=== PATIENT | female | born 1955 | race Caucasian/White ===

== ENCOUNTER → 2018-01-23 06:54 | Outpatient (CLI) | payer BC, SELFPAY ==
[2018-01-23 07:41] LABS: CREATININE FINGERSTICK < 0.6 mg/dL (0.55-1.02); EGFR FINGERSTICK > 60.0000 mL/min (>60)
--- NOTE | 2018-01-23 15:04 | PFTCOMP ---
COMPLETE PULMONARY FUNCTION TEST INTERPRETATION Brief HPI: Patient is a 62 year old female, currently under the care of Dr. Ochoa, who presents to [facility] for complete pulmonary function tests secondary to diagnosis of cough. Respiratory therapist reports good effort and reproducible results. Interpretation: Forced expiration spirometry shows no large airways obstructive ventilatory defect with an FEV1 of 107% predicted. There is no significant bronchodilator response by ATS criteria. Spirograms are of good quality and plateau normally. The respiratory flow volume loop shows a normal pattern. Lung volumes by body plethysmography show a normal total lung capacity at 5.52 L, 109% predicted. All other lung volumes are within normal limits. Diffusion capacity by carbon monoxide is normal at 93% predicted. The airway resistance is elevated. No previous pulmonary function tests were available for review. Impression: These pulmonary function tests are grossly within normal limits. Consider bronchoprovocation study if asthma is suspected.
== END ==
PROVIDERS: Family Provider Family Medicine; PCP Family Medicine; Visit Provider Family Medicine
DX: Z87.09 Personal history of other diseases of the respiratory system (principal); Z80.0 Family history of malignant neoplasm of digestive organs
CPT/HCPCS: 74177; 94060; 94726; 94729; Q9967; A4216

== ENCOUNTER 2018-03-17 07:39 | Day surgery (SDC) | payer BC, SELFPAY ==
[2018-03-17 07:53] VITALS: BP 122/61; PULSE 59; RESP 16; TEMP 36.7; O2SAT 100; BMI 25.1
--- NOTE | 2018-03-17 08:47 | HP.PCM_ITS ---
History of Present Illness Date of Admission: 03/17/18 The patient is a 62 year old F presents for a screening colonoscopy. Patient denies any history of abdominal pain, nausea or vomiting. Patient states she has daily bowel movements denies any blood. Denies any previous colonoscopies or any family history of colon cancer. Past Medical/Surgical History - Planned Operation Planned Operative Procedure/s: colonoscopy Date of Operative Procedure: 03/17/18 Permit Signed: No S.O.S: No Is This Patient Having a Total Joint: No - Previous Hospitalizations/Surgeries HX Hospitalizations: Yes HX of Surgeries: skin Cancers. hysteroscopy. colonoscopy 2017 Any Problems With Anesthesia: Yes - extremely low BP You/Your Family Experience Fever (Hyperthermia) With Anes: No Cholinesterase deficiency: No - Cardiovascular Hx Chest Pain within Last 2 months: No Hx of Irregular Heartbeat and/or Afib: Yes Hx Heart Attack: No Hx Congestive Heart Failure: No Hx Rheumatic Fever: No Hx Hypertension: No Hx Internal Defibrillator: No Hx Pacemaker: No Hx Cardiac Catheterization: No Hx Cardiac Surgery/Stents/Etc.: No Hx Stress Test: Yes - 09/2017 Dr Craig HX Edema: No Hx Pain in Legs when Walking/Leg Cramps: No - Respiratory Chronic Cough: Yes - x1 year HX of Shortness of Breath: No Hoarseness: No Hx Chronic Obstructive Pulmonary Disease (COPD): No Hx Asthma: No Hx Emphysema: No Hx Sleep Apnea: No Hx Oxygen Use at Home: No Hx Respiratory Tract Infection/Cold (presently): No Do You Snore Loudly (louder than talking or can be heard): No Do You Often Feel Tired/ Fatigued/ Sleepy Dring Daytime?: No Has Anyone Observed You Stop Breathing During Sleep?: No Result (for STOP score): Negative Hx Smoking: Yes Smoking Status: Never smoker - Gastrointestinal Hx Gastroesophageal Reflux: No Hx Gastrointestinal Disorders: No Hx Gastrointestinal Bleed: No Hx Ulcer: No Hx Hiatal Hernia: No Difficulty Chewing/Swallowing: No Recent Onset of Swallowing Problems: No Special diet followed at home: No Hx Unplanned Weight Loss of 20#: No HX Unplanned Weight Gain of 20#: No - Neurological Hx Seizures: No HX Syncope/Blackout Spells/Unconsciousness: No Hx CVA/Stroke: No Hx Transient Ischemic Attacks (TIA): No Hx Multiple Sclerosis: No Hx Parkinson's Disease: No Hx Head/Neck Injury: No Hx Headaches: No Hx Back Injury/Pain: No Recent Onset of Speech Difficulty: No Restless Legs: No Does patient have nerve stimulator: No - Blood Disorder Hx Leukemia: No Bleeding Tendencies: Yes Hx Deep Vein Thrombosis: No Hx High Cholesterol: No Blood Transmitted Disease: No Hx Hepatitis: No Hx Cirrhosis: No Hx Anemia: No Hx Blood Disorders: No - Reproduction Are You Post Menopause: Yes - Genitourinary Hx Renal Disease: No - Musculoskeletal Hx Arthritis: Yes Hx Rheumatoid Arthritis: No Hx Gout: No Recent Onset of an Orthopedic Problem: No - Endocrine Hx Diabetes: No Thyroid Disease: No Hx Steroid Therapy: No - Psycho/Social Hx Substance Use: No Hx Alcohol Use: Yes - wine with dinner daily Hx Anxiety: No Hx Depression: No Mental Illness: No - Miscellaneous Hx Cancer: Yes - skin CA Recent Exposure to Contagious Disease: No Active MRSA: No Hx of C-Diff: No Any Loose Teeth: No Additional information pertinent to anesthesia:: none Allergies Penicillins Allergy (Intermediate, Verified 01/10/18 13:51) Hives - Discharge Is Pt Admitted From a Assisted, or a Penitentiary: No Who Depends On You At Home: lives with Who Could Help: After D/C, Where Do you Plan to Go: Return Home - From the PAT History Number of Risk Factors: 3 - Physical Exam General: Alert, Oriented x3, Cooperative, No apparent distress HEENT: Atraumatic Lungs: Normal air movement Cardiovascular: Regular rate Abdomen: Soft, Non Tender, Non-Distended Extremities: No clubbing, No cyanosis, No edema Neurological: Cranial nerves II-XII grossly intact Psych/Mental Status: Normal Affect Vital Signs Temp Pulse Resp BP Pulse Ox 98.1 F 59 L 16 122/61 H 100 03/17/18 07:53 03/17/18 07:53 03/17/18 07:53 03/17/18 07:53 03/17/18 07:53 Oxygen Delivery Method Room Air Weight: 151 lb 0.266 oz Body Mass Index (BMI) 25.1 Assessment/Plan All Active Problems (Last Updated 01/10/18 @ 13:59 by Judy Chapa) Skin cancer (Acute) 62-year-old female for screening colonoscopy Surgery Risks - Colonoscopy I discussed with the patient the risks of the procedure: Yes Risks Include but are not Limited To: Risks include but are not limited to: Bleeding, perforation requiring further surgery, inability to complete colonoscopy requiring barium enema. Patient no further questions
[2018-03-17 09:20] VITALS: BP 122/61; BP 90/43; PULSE 65; RESP 16; TEMP 36.3; O2SAT 100
--- NOTE | 2018-03-17 09:20 | OP.ENDO_ITS ---
Patient Name: Jane Doe Procedure Date: 03/17/2018 8:47 AM Date of : 1955 Age: 62 Procedure: Colonoscopy Indications: Screening for colorectal malignant neoplasm Providers: Rosita Albert MD Referring MD: Rosita Albert MD Medicines: Monitored Anesthesia Care Patient Profile: Last Colonoscopy: none. The patient's first colonoscopy is today. Complications: No immediate complications. Procedure: Pre-Anesthesia Assessment: - Prior to the procedure, a History and Physical was performed, and patient medications and allergies were reviewed. The patient's tolerance of previous anesthesia was also reviewed. The risks and benefits of the procedure and the sedation options and risks were discussed with the patient. All questions were answered, and informed consent was obtained. Prior Anticoagulants: The patient has taken no previous anticoagulant or antiplatelet agents. ASA Grade Assessment: II - A patient with mild systemic disease. After reviewing the risks and benefits, the patient was deemed in satisfactory condition to undergo the procedure. After I obtained informed consent, the scope was passed under direct vision. Throughout the procedure, the patient's blood pressure, pulse, and oxygen saturations were monitored continuously. The colonoscope was introduced through the anus and advanced to the cecum, identified by the appendiceal orifice, IC valve and transillumination. The colonoscopy was performed without difficulty. The patient tolerated the procedure well. The quality of the bowel preparation was good. Scope In: 8:57:12 AM Scope Withdrawal Time 0 hours 10 minutes 0 seconds Scope Out: 9:16:28 AM Total Procedure Duration Time 0 hours 19 minutes 16 seconds Findings: The perianal and digital rectal examinations were normal. The entire examined colon appeared normal on direct and retroflexion views. Impression: - The entire examined colon is normal on direct and retroflexion views. - No specimens collected. Recommendation: - Discharge patient to home. - Continue present medications. - Repeat colonoscopy in 10 years for screening purposes. Procedure Code(s): --- Professional --- G0121, Colorectal cancer screening; colonoscopy on individual not meeting criteria for high risk Diagnosis Code(s): --- Professional --- Z12.11, Encounter for screening for malignant neoplasm of colon CPT copyright 2017 [employer]. All rights reserved. The codes documented in this report are preliminary and upon care tech review may be revised to meet current compliance requirements. MD Rosita Gibbs MD 03/17/2018 9:20:26 AM This report has been signed electronically. Number of Addenda: 0 Note Initiated On: 03/17/2018 8:47 AM
[2018-03-17 09:25] VITALS: BP 122/61; BP 97/55; PULSE 60; RESP 16; O2SAT 100
[2018-03-17 09:30] VITALS: BP 122/61; BP 96/54; PULSE 58; RESP 16; O2SAT 100
[2018-03-17 09:35] VITALS: BP 105/55; BP 122/61; PULSE 60; RESP 16; TEMP 36.6; O2SAT 100
[2018-03-17 09:59] VITALS: BP 122/61
== END 2018-03-17 10:00 | disposition home or self-care (01) ==
LOC: EN 07:39 → AC 07:41
PROVIDERS: Family Provider Family Medicine; PCP Family Medicine; Referring Provider Surgery; Visit Provider Surgery
PROC: 0DJD8ZZ Inspection of Lower Intestinal Tract, Via Natural or Artificial Opening Endoscopic (ICD-10-PCS; CPT 45378; principal; 2018-03-17 08:40)
DX: Z12.11 Encounter for screening for malignant neoplasm of colon (principal); M19.90 Unspecified osteoarthritis, unspecified site; Z78.0 Asymptomatic menopausal state; Z85.828 Personal history of other malignant neoplasm of skin; Z79.82 Long term (current) use of aspirin; Z79.899 Other long term (current) drug therapy; Z87.891 Personal history of nicotine dependence
CPT/HCPCS: 45378; J7120

== ENCOUNTER → 2020-11-03 14:12 | Outpatient (CLI) | payer MEDICARE, SELFPAY ==
--- NOTE | 2020-11-03 14:14 | BI_ITS ---
MAMMOGRAPHY - BILATERAL SCREENING REASON FOR EXAM: Female, 65 years old. Routine annual screening examination. PERTINENT HISTORY: Non-contributory. TECHNIQUE: Digital bilateral breast max (3D mammographic acquisition) in the CC and MLO projections. 2-D mediolateral oblique (MLO) and craniocaudad (CC) views of both breasts were obtained. CAD: Full Field Digital Mammography with Computer Added Detection was performed. COMPARISON: Comparison is made with prior outside examination dated 12/05/2017. FINDINGS: Breast Composition: The breasts are heterogeneously dense, which may obscure small masses. There are now is evidence of an irregular 1 cm x 0.9 cm nodule in the slightly inferior anterior medial aspect of the right breast. Correlation with ultrasound is recommended for further evaluation. No other significant abnormalities are identified. BI/SCRN MAMM (CAD)W/MAX BILAT IMPRESSION: New 1 cm by 0.9 cm nodule in the slightly inferior anterior medial aspect of the right breast correlation with ultrasound is recommended. ASSESSMENT CATEGORY: BIRADS Category 0: Incomplete. Need additional imaging evaluation. A letter regarding these results will be sent to the patient by the facility within 30 days. Approximately 10% of breast cancers are not detected by mammography. A normal mammogram should not delay biopsy of a clinically suspicious abnormality. [id number] Electronically Signed: Mode Ford MD at 15:03 EDT , Service support ,
--- NOTE | 2020-11-03 14:55 | BD_ITS ---
STUDY: DUAL ENERGY X-RAY ABSORPTIOMETRY / DXA REASON FOR EXAM: Female, 65 years old. Z780. The patient is postmenopausal. TECHNIQUE: Bone Mineral Density (BMD) measurements of lumbar spine and bilateral hips were obtained. COMPARISON: None. FINDINGS: Lumbar Spine (L1-L4): g/cm2 (0.963) / T-score (-1.8) / Z-score (-0.2) Findings are suggestive of osteopenia with a moderate fracture risk. Left Femur Total: g/cm2 (0.771) / T-score (-1.9) / Z-score (-0.7) Left Femoral Neck: g/cm2 (0.699) / T-score (-2.4) / Z-score (-1.0) Right Femur Total: g/cm2 (0.722) / T-score (-2.3) / Z-score (-1.1) Right Femoral Neck: g/cm2 (0.649) / T-score (-2.8) / Z-score (-1.3) BD/Dexa Bone Density Study IMPRESSION: The patient is considered osteoporotic as outlined below according to World Lon Organization (WHO) criteria with a high fracture risk. Reference Information: The T-score is the number of standard deviations above or below the standard which is normal for young adults at their peak bone mineral density. The World Health Organization (WHO) interprets the T-scores as follows: Above -1 Normal bone density Between -1 and -2.5 Osteopenia Equal to / or below -2.5 Osteoporosis As a practical clinical guideline, osteopenia may be graded as follows: Mild -1 through -1.5 Moderate -1.6 through -2.0 Severe -2.1 through -2.4 The Z-score is the number of standard deviations above or below age-matched controls. A Z-score of less than -1.5 would be considered abnormal. References: 1. NIH Osteoporosis and Related Bone Diseases www osteo.org 2. International Society for Clinical Densitometry www iscd.org 3. National Osteoporosis Foundation www nof.org Electronically Signed: Mode Ford MD at 8:42 EDT , Service support ,
== END ==
PROVIDERS: PCP Family Medicine; Referring Provider Internal Medicine; Visit Provider Internal Medicine
DX: Z12.31 Encounter for screening mammogram for malignant neoplasm of breast (principal); Z78.0 Asymptomatic menopausal state
CPT/HCPCS: 77063; 77067; 77080

== ENCOUNTER → 2020-11-04 14:17 | Outpatient (CLI) | payer MEDICARE, SELFPAY ==
--- NOTE | 2020-11-04 14:22 | US_ITS ---
STUDY: ULTRASOUND BREAST - RIGHT REASON FOR EXAM: Female, 65 years old. Abnormal screening mammogram. TECHNIQUE: Axial and longitudinal images of the RIGHT breast were performed with a high resolution ultrasound transducer. # OF IMAGES: 16 COMPARISON: Comparison is made with prior mammogram dated 11/03/2020. FINDINGS: RIGHT Breast: The mammographic abnormality corresponds to a 1 cm x 0.9 cm x 1 cm irregular complex nodule with increased vascularity at the 4 o''clock position of the breast at 2 cm from the nipple. Biopsy is recommended. _ US/Breast Limited Unilateral IMPRESSION: 1 cm x 0.9 cm x 1 cm irregular complex nodule with increased vascularity at the 4 o''clock position of the breast at 2 cm from nipple. Biopsy is recommended. ASSESSMENT CATEGORY: BIRADS Category 4: Suspicious - Biopsy Should Be Considered. A letter regarding these results will be sent to the patient by the facility within 30 days. Electronically Signed: Mode Ford MD at 15:02 EDT , Service support ,
== END ==
PROVIDERS: PCP Family Medicine; Referring Provider Internal Medicine; Visit Provider Internal Medicine
DX: R92.8 Other abnormal and inconclusive findings on diagnostic imaging of breast (principal)
CPT/HCPCS: 76642

== ENCOUNTER → 2020-11-09 16:05 | Outpatient (CLI) | payer MEDICARE, SELFPAY ==
--- NOTE | 2020-11-09 | IMM_PTH ---
PATIENT: MISBAH JOHNSON LOC: [facility] U#:[id number] AGE/SX: 69/F ROOM: RE11/09/[address]: Dr. Darian Wyman MD : 1955 BED: DIS: SPEC #: [id number] RECD: 11/11/20 12:49 STATUS: DEBRA REAustin #: [id number] SHYLA: 11/09/20 00:[address]: Darian Wyman DEPT: IMMUNOHISTOCHEMISTRY RECD BY: Isabella Ochoa Tissues: Right breast, NOS Procedures: CALPONIN-1 (add) CK5-6 (add) CK8 (add) SHIRLEY-2 (add) E-CAD (add) HER2 LYNETTE (add) KI-67 (add) P53 (add) SC (add) P40 (add) ER (initial) PHYSICIAN & INSTITUTION [place] [id number] SPECIMEN INFORMATION: Tissue Source: Right breast tissue Clinical Info: Abnormal right breast ultrasound Specimen Number: [id number] CPT code: 51235, 91968 x7, 19273 x3 METHODOLOGY: Deparaffinized sections of prefer/formalin-fixed tissue or PAP/DQ stained slides are incubated with monoclonal/polyclonal antibodies/oligonucleotide probes. Localization is made via biotin free immunoperoxidase method. Appropriate controls are performed and reacted as expected. Results on target cell population are indicated in the following table: RESULTS: ANTIBODY / CLONE RESULT P53 (DO-7) negative Ki-67 (30-9) positive, low to moderate CK8 (49cuekG76) positive CK5-6 (D5 & 1684) negative Calponin-1 (BI632H) negative P40 (BC28) negative E-Cad (ECH-6) positive SHIRLEY-2 (SP21) negative MORPHOMETRIC ANALYSIS ER (clone 6F11) >95%, strong SC (clone 16/1E2) >95%, moderate to strong Her-2Neu (clone CB11) 0 The prognostic test for HER2 is performed on formalin-fixed paraffin embedded tissue. A 3+ (positive) staining pattern is defined as intense, homogeneous, complete, circumferential membranous staining in >10% of contiguous tumor cells. A similar weak (2+) staining pattern is interpreted as equivocal. YULISA follow-up testing is recommended for all equivocal cases. Positivity/negativity for ER/SC is reported if > or < 1% of the tumor cells are immuno- reactive, respectively. The ASCO/CAP criteria is used for scoring. Reference: Journal of Clinical Oncology, 2013; 31:9913-6557 & 2010; 16:7368-6199. Duration of fixation: 6.5 Hrs; Sample Adequate: Yes. These assays have not been validated on decalcified tissues. Results should be interpreted with caution given the likelihood of false negativity on decalcified specimens. These tests were developed and their performance characteristics determined by [facility]. They may not have been cleared or approved by the U.S. Food and Drug Administration. The FDA has determined that such clearance or approval is not necessary. The above immunohistochemical/dualISH markers are ordered and reviewed by the Pathologist. INTERPRETATION: Right breast, biopsy: Invasive ductal carcinoma, nuclear grade 2. Positive for estrogen receptors (favorable prognostic indicator). Positive for progesterone receptors (favorable prognostic indicator). Negative for overexpression of NKV1jie. AM:neema 11/14/2020
[2020-11-09 13:26] VITALS: BMI 26.6
--- NOTE | 2020-11-09 13:45 | BRBX_PTH ---
PATIENT: MISBAH JOHNSON LOC: [facility] U#:[id number] AGE/SX: 69/F ROOM: RE11/09/[address]: Dr. Darian Wyman MD : 1955 BED: DIS: SPEC #: [id number] RECD: 11/09/20 16:02 STATUS: DEBRA RAJESH #: [id number] SHYLA: 11/09/20 13:[address]: Darian Wyman DEPT: SURGICAL PATHOLOGY RECD BY: [place] Tissues: Right breast, NOS Procedures: Surgery Specimen Level IV HEADER OPERATION: Right breast biopsy PRE-OP DIAGNOSIS: Abnormal right breast ultrasound TISSUE SUBMITTED: Right breast tissue MICROSCOPIC DIAGNOSIS Right breast, ultrasound-guided core biopsy: Invasive ductal carcinoma with the following characteristics: Maximal length ? 9 millimeters Nuclear grade ? 1-2/3 AM:neema 11/11/2020 COMMENT ER/MI/Gom6pdb studies are being performed on sections of tumor and the results from this study will be reported separately ([id number]). Case has been reviewed in consultation with Dr. Soto who concurs with the above diagnosis. IDC:SJ MICROSCOPIC DESCRIPTION Slides are reviewed. GROSS DESCRIPTION Received in fixative is one container labeled with the patient name and designated right breast. The specimen consists of multiple elongated fragments of flynn-yellow fibroadipose tissue that in aggregate measure 1.7 x 0.3 x 0.1 cm. The entire specimen is submitted in one cassette. / SARBJIT:neema 11/10/20 TC:0 CPT: 98362
== END ==
PROVIDERS: Referring Provider Surgery; Visit Provider Surgery
DX: R92.8 Other abnormal and inconclusive findings on diagnostic imaging of breast (principal)
CPT/HCPCS: 88305; 88341; 88342

== ENCOUNTER → 2020-11-18 07:21 | Outpatient (CLI) | payer MEDICARE, SELFPAY ==
[2020-11-14 05:53] VITALS: BMI 26.6
--- NOTE | 2020-11-18 07:22 | MRI_ITS ---
STUDY: BILATERAL BREAST MR WITHOUT AND WITH CONTRAST REASON FOR EXAM: Female, 65 years old. Newly diagnosed right breast cancer. TECHNIQUE: Multi-sequence multi-echo imaging of both breasts was performed with a dedicated breast coil. T1-weighted and T2-weighted images were performed before the administration of contrast. T1-weighted images were also performed after the administration of 13ml of Dotarem contrast IV without complications. COMPARISON: Bilateral mammograms dated 12/05/2017, 11/03/2020 and left breast ultrasound dated 12/05/2017 and right breast ultrasound dated 11/04/2020. FINDINGS: RIGHT BREAST: The breast tissue is scattered fibroglandular densities with minimal background enhancement. Irregular enhancing mass at the 4 o''clock position of the right breast approximately 2 cm from the nipple corresponding to the ultrasonographic abnormality and measuring 1.04 cm X 1.09 cm X 1.22 cm. Tissue clip artifact within the mass. LEFT BREAST: The breast tissue is scattered fibroglandular densities with minimal background enhancement. There are no abnormal enhancing masses or areas of non-mass enhancement in the left breast. There are no enlarged or abnormal lymph nodes. There is no abnormality in the visualized regions of the chest or liver. MRI/Breast Bilateral W/O and W IMPRESSION: Mass at the 4 o''clock position of the right breast corresponding to the ultrasonographic abnormality and measuring 1.04 cm x 1.9 cm x 1.22 cm. Left breast is unremarkable. No abnormal lymph nodes in either axilla. CATEGORY: BIRADS Category 6: Known Biopsy-Proven Malignancy - Appropriate Action Should Be Taken. A letter regarding these results will be sent to the patient by the facility within 30 days. Electronically Signed: Yung Delong MD at 10:17 EDT , Service support ,
[2020-11-18 08:25] LABS: Absolute Lymphocyte Count 2.84 X10^3/uL (0.83-4.51); Absolute Neutrophil Count 1.7 X10^3/uL (2.0-7.7); Basophil# 0.03 X10^3/uL; Basophil% 0.6 % (0-1); Eosinophil# 0.11 X10^3/uL; Eosinophils% 2.2 % (0-5); Hematocrit 43.4 % (37-47); Hemoglobin 14.5 g/dL (12.0-15.0); Lymphocyte # 2.84 X10^3/ul (0.83-4.51); Lymphocyte % 55.6 % (19-41); Mean Corp Hgb Conc 33.4 g/dL (32-36); Mean Corpuscular Hgb 31.7 pg (27.0-32.0); Mean Corpuscular Volume 94.8 fL (81-99); Mean Platelet Vol. 10.9 fl (6.2-12.0); Monocyte# 0.47 X10^3/uL; Monocyte% 9.2 % (0-10); NRBC Flagged by Analyzer 0 % (0-5); Neutrophil # 1.66 X10^3/uL (2.7-7.7); Neutrophil % 32.4 % (47-70); Platelet Count 315 K/mm3 (150-450); RBC Distribution Width CV 13.6 % (11.6-14.6); RBC Distribution Width SD 47.5 fl (35.1-43.9); Red Blood Count 4.58 M/mm3 (4.2-5.4); White Blood Count 5.1 K/mm3 (4.4-11.0)
[2020-11-18 08:35] LABS: Erythrocyte Sedimentation Rate 4 mm/hr (0-30)
[2020-11-18 09:08] LABS: ALB/GLOB Ratio 1.1 RATIO (0.9-2.4); AST(SGOT) 31 U/L (15-37); Alanine Aminotransfer ALT/SGPT 27 U/L (13-56); Alkaline Phosphatase 83 U/L (45-117); Anion Gap 3 (5-15); BUN 9 mg/dL (7-18); Bilirubin, Direct 0.18 mg/dL (0.00-0.30); CRP < 2.90 mg/L (0.0-3.0); Calcium,Total 9.1 mg/dL (8.5-10.1); Chloride 105 mmol/L (98-107); Cholesterol 246 mg/dL (200); EST Glomerular Filtration Rate 67 mL/min (>60); Est Glom Filt Rate - Afr Amer 81 mL/min (>60); Globulin 3.6 g/dL (2.2-4.2); Glucose 90 mg/dL (74-106); High Density Lipoprotein 109 mg/dL; Phosphorus 3.8 mg/dL (2.5-4.9); Potassium 4.2 mmol/L (3.5-5.1); Protein, Total 7.6 g/dL (6.4-8.2); Rheumatoid Factor < 10.0 IU/mL (<15); Sodium Level 137 mmol/L (136-145); Triglycerides 51 mg/dL; Very Low Density Lipoprotein 10 mg/dL (5-40)
[2020-11-18 09:23] LABS: PTHIN 51.7 pg/mL (18.4-80.1)
[2020-11-18 10:06] LABS: Hepatitis C Antibody Non-Reactive (Nonreactive); Vitamin B12 409 pg/mL (211-911); Vitamin D,25 Hydroxy 33.2 ng/mL
[2020-11-22 20:10] LABS: ANTINUCLEAR ANTIBODIES DIRECT Negative (Negative)
[2020-11-23 14:09] LABS: PROEL- A/G Ratio 1.2 (0.7-1.7); PROEL- Albumin 3.8 g/dL (2.9-4.4); PROEL- Alpha-1 Globulin 0.2 g/dL (0.0-0.4); PROEL- Alpha-2 Globulin 0.7 g/dL (0.4-1.0); PROEL- Gamma Globulin 1.2 g/dL (0.4-1.8); PROEL- Globulin, Total 3.2 g/dL (2.2-3.9); PROELU- Albumin, Urine 29.6 % (.); PROELU- Alpha-1-Globulin,Ur 4.3 % (.); PROELU- Alpha-2-Globulin,Ur 22.6 % (.); PROELU- Beta Globulin, Ur 20.8 % (.); PROELU- Gamma Globulin, Ur 22.6 % (.); Total Protein, Ur 10.3 mg/dL (Not Estab.)
== END ==
PROVIDERS: Internal Medicine; Referring Provider Surgery; Visit Provider Surgery
DX: C50.911 Malignant neoplasm of unspecified site of right female breast (principal); M81.0 Age-related osteoporosis without current pathological fracture; R53.83 Other fatigue
CPT/HCPCS: 36415; 77049; 80053; 80061; 82248; 82306; 82607; 82652; 82746; 83970; 84100; 84165; 84166; 84443; 85025; 85652; 86038; 86140; 86431; 86803; A9575; A4216; C8908

== ENCOUNTER → 2020-11-23 08:24 | Outpatient (CLI) | payer MEDICARE, SELFPAY ==
[2020-11-14 05:53] VITALS: BMI 26.6
[2020-11-23 08:51] LABS: (24 HR) Urine Calcium 250.8 mg/24 HR (42.0-353.0); 24HR UR TOTAL VOLUME 3800 ml; Calcium Urine pH Range 1; Urine Calcium (Random) 6.6 (Not Estab.)
== END ==
PROVIDERS: PCP Internal Medicine; Visit Provider Internal Medicine
DX: M81.0 Age-related osteoporosis without current pathological fracture (principal)
CPT/HCPCS: 81050; 82340

== ENCOUNTER 2020-12-02 08:37 | Day surgery (SDC) | payer MEDICARE, SELFPAY ==
[2020-11-14 05:53] VITALS: BMI 26.6
--- NOTE | 2020-11-28 13:57 | RAD_ITS ---
STUDY: X-RAY CHEST REASON FOR EXAM: Female, 65 years old. Preop TECHNIQUE: PA and lateral views of the chest. COMPARISON: None. FINDINGS: Hyperinflation. The lungs are clear. There is no demonstrated pleural abnormality. Normal size heart. Normal mediastinum and chris. Normal visualized pulmonary arteries. Normal visualized aortic arch and descending thoracic aorta. There are mild degenerative changes of the visualized thoracic spine. Normal visualized ribs, clavicles, and shoulders. There is no demonstrated abnormality of the visualized soft tissue structures of the upper abdomen. RAD/Chest PA and Lateral IMPRESSION: Hyperinflation. The lungs are clear. Electronically Signed: Mode Ford MD at 14:41 EDT , Service support ,
--- NOTE | 2020-11-28 13:57 | EKG12_ITS ---
Test Reason : PREOP Blood Pressure : / mmHG Vent. Rate : 048 BPM Atrial Rate : 048 BPM P-R Int : 120 ms QRS Dur : 094 ms QT Int : 468 ms P-R-T Axes : 054 055 058 degrees QTc Int : 418 ms Sinus bradycardia Otherwise normal ECG Confirmed by HECTOR RAMOS, ADELINA ([id number]), dictionary editor EVERARDO BENITEZ ([id number]) on 11/29/2020 7:37:40 AM Referred By: Darian Wyman Confirmed By:ADELINA YOUNG MD
[2020-12-02] VITALS (12 sets, daily range): BP systolic 87–114; BP diastolic 46–80; PULSE 55–71; RESP 16; TEMP 36.4–36.6; O2SAT 93–100; BMI 25.2
--- NOTE | 2020-12-02 | IMM_PTH ---
PATIENT: MISBAH JOHNSON LOC: [facility] U#:[id number] AGE/SX: 65/F ROOM: RE12/02/[address]: Dr. Darian Wyman MD : 1955 BED: DIS: 12/02/2020 SPEC #: [id number] RECD: 12/07/20 13:16 STATUS: DEBRA REAustin #: [id number] SHYLA: 12/02/20 00:[address]: Darian Wyman DEPT: IMMUNOHISTOCHEMISTRY RECD BY: Isabella Ochoa ENTERED: 12/07/20 13:17 SP TYPE: IMMUNO OTHR DR: Dr. Aleaj Almendarez DO Tissues: C - Axillary lymph node, NOS Procedures: CK7 (add) Pankeratin (initial) Pankeratin (add) PHYSICIAN & INSTITUTION [place] [address] SPECIMEN INFORMATION: Tissue Source: C ? Right axillary sentinel lymph nodes Clinical Info: Breast cancer Specimen Number: [id number] C1-C5 CPT code: 51231, 66239 x9 METHODOLOGY: Deparaffinized sections of prefer/formalin-fixed tissue or PAP/DQ stained slides are incubated with monoclonal/polyclonal antibodies/oligonucleotide probes. Localization is made via biotin free immunoperoxidase method. Appropriate controls are performed and reacted as expected. Results on target cell population are indicated in the following table: RESULTS: ANTIBODY / CLONE RESULT Block C1 AE1-3 (AE1/AE3/PCK26) negative CK7 (OV-TL12/30) negative Block C2 AE1-3 (AE1/AE3/PCK26) negative CK7 (OV-TL12/30) negative Block C3 AE1-3 (AE1/AE3/PCK26) negative CK7 (OV-TL12/30) negative Block C4 AE1-3 (AE1/AE3/PCK26) negative CK7 (OV-TL12/30) negative Block C5 AE1-3 (AE1/AE3/PCK26) negative CK7 (OV-TL12/30) negative These tests were developed and their performance characteristics determined by [facility]. They may not have been cleared or approved by the U.S. Food and Drug Administration. The FDA has determined that such clearance or approval is not necessary. The above immunohistochemical/dualISH markers are ordered and reviewed by the Pathologist. INTERPRETATION: C. Right axillary sentinel lymph nodes, biopsy: Five out of five lymph nodes, negative for metastatic carcinoma. SJ:neema 12/08/2020
--- NOTE | 2020-12-02 | AXNB_PTH ---
PATIENT: MISBAH JOHNSON [place] [facility] [place][id number] AGE/SX: 65/F ROOM: RE12/02/[address]: Dr. Darian Wyman MD : 1955 BED: DIS: 12/02/2020 SPEC #: [id number] RECD: 12/02/20 12:27 STATUS: DEBRA RE[place] #: [id number] SHYLA: 12/02/20 00:[address]: Darian Wyman DEPT: SURGICAL PATHOLOGY RECD BY: Isabella Ochoa ENTERED: 12/02/20 13:53 SP TYPE: AX NODE BX OTHR DR: Dr. Aleja Almendarez, DO Tissues: A - Axillary lymph node, NOS B - Right breast, NOS C - Axillary lymph node, NOS Procedures: Frozen Section (charge) Frozen Section Add'l ([facility]) Surgery Specimen Level IV Surgery Specimen Level V HEADER OPERATION: Right breast stereotactic wire localized lumpectomy PRE-OP DIAGNOSIS: Breast cancer TISSUE SUBMITTED: A ? Right axillary sentinel lymph node, FS at 1223, B ? Right breast mass, C??Right axillary sentinel lymph node, FS at 1303 FROZEN SECTION DIAGNOSIS C. Right axillary sentinel lymph nodes, biopsy: Five out of five lymph nodes, negative for metastatic carcinoma. SJ:neema 12/02/2020 MICROSCOPIC DIAGNOSIS A. Right axillary sentinel lymph node, biopsy: Fragments of fatty benign breast tissue. Negative for carcinoma. B. Right breast mass, lumpectomy with wire localization: Invasive ductal carcinoma. See cancer summary in the comment section. C. Right axillary sentinel lymph nodes, biopsy: Five out of five lymph nodes, negative for metastatic carcinoma. See comment. COMMENT B. BREAST CANCER SUMMARY Procedure - excision with wire localization Specimen laterality ? right Invasive tumor: Tumor site ? lower inner quadrant of breast as per clinical information. Tumor size ? 1.1 x 1 x 1 cm. Histologic type ? invasive ductal carcinoma (not otherwise specified) Histologic grade (Oscar grade): Glandular/tubular differentiation score - 3 Nuclear pleomorphism score - 2 Mitotic count score - 1 Overall grade ? grade 2 (score of 6) Tumor focality ? single focus of invasive carcinoma Ductal Carcinoma In Situ ? not identified Tumor extension: Skin ? skin is not present Nipple ? not applicable Skeletal muscle ? no skeletal muscle is present. Invasive Carcinoma Margin ? invasive carcinoma is 0.1 cm away from the closest inferior margin. Ductal carcinoma in situ margin ? not applicable Regional Lymph Nodes: (specimen C) Total number of lymph nodes examined ? 5 Number of sentinel lymph nodes examined - 5 Number of lymph nodes with macrometastases, micrometastases or isolated tumor cells ? 0 Treatment effect ? no known presurgical therapy. Lymphvascular invasion ? not identified Dermal lymphvascular invasion ? not applicable Additional Pathologic Findings ? fibrocystic changes, ductal dilatation and adenosis. Ancillary Studies: Previously performed on section of tumor ([id number] / [id number]) ER: positive (>95%, strong intensity) MA: positive (>95%, moderate to strong intensity) [id number]: negative (0) Microcalcifications ? not identified Clinical History - Please make reference to previous specimen ([id number]) right breast, ultrasound-guided core biopsy with diagnosis of invasive ductal carcinoma. Radiologic Finding ? abnormal right breast ultrasound PATHOLOGIC STAGE: pT1c pN0(sn) pMx The above summary is in compliance with [employer] [place] [employer] (CAP) Cancer Protocols Checklist and [place] [employer] Committee on Cancer (AJCC), Staging Manual, 8th Ed. C. The lymph nodes are negative for metastatic carcinoma on multiple H & E levels and immunohisto-chemical stains for cytokeratins ([id number]). Case has been reviewed in consultation with Dr. Curtis who concurs with the above diagnosis. IDC:AM MICROSCOPIC DESCRIPTION Slides are reviewed. GROSS DESCRIPTION A - Received fresh for frozen section diagnosis labeled with the patient's name is a specimen designated right axillary sentinel lymph node. The specimen consists of a piece of fibroadipose tissue measuring 4.5 x 3.5 x 1.5 cm. Careful dissection of the tissue do not reveal any lymph node tissue. This information is conveyed to the surgeon intraoperatively. The entire specimen is submitted in two cassettes. / :neema 12/02/20 B - Received fresh for intraoperative consultation labeled with the patient's name is a specimen designated right breast mass. The specimen consists of a piece of fibroadipose tissue with needle localization measuring 5.5 x 4.5 x 2.5 cm. The specimen is oriented as follows: wire ? anterior, long suture ? lateral, short suture ? superior. The specimen is inked as follows: anterior - yellow, posterior - black, superior - blue, inferior - green, medial - red and lateral - orange. Serial sections reveal a tumor mass measuring 1.1 x 1 x 1 cm. It is present at the inferior margin of the specimen. This information is conveyed to the surgeon intraoperatively. The rest of the specimen reveal flynn-yellow adipose cut surfaces mixed with scant flynn-white fibrous areas. Straw Hat Machine Operator sections are submitted in 12 cassettes as follows: 1 ? perpendicular medial, lateral and superior margins, 2 ? perpendicular anterior and posterior margin, 3-6 ? entire tumor with closest inferior margin, 7-12 ? territory representative sections adjacent to and away from the tumor. Sections are submitted after additional fixation. / :nemea 12/05/20 C - Received fresh for frozen section diagnosis labeled with the patient's name is a specimen designated right axillary sentinel lymph node. The specimen consists of a piece of adipose tissue containing nodule consistent with lymph node measuring 5 x 4.5 x 1 cm. Five lymph nodes are identified measuring 0.3 to 1 cm in greatest dimension. The lymph nodes are submitted in entirety for frozen section diagnosis as follows: 1-3 ? each cassette containing one bisected lymph node, 4 & 5 ? each cassette containing one lymph node. / SJ:neema 12/02/20 TC:0 CPT: 13450, 02534, 01162 x4, 62437 x2, 99735 ADDENDUM ADDENDUM ADDENDUM ADDENDUM ADDENDUM ADDENDUM ADDENDUM ADDENDUM 12/26/2020 09:33 ADDENDUM 12/26/2020 09:33 ADDENDUM 12/26/2020 09:33 ADDENDUM 12/26/2020 09:33 ADDENDUM 12/26/2020 09:33 An order for Oncotype testing was received from Dr. Huntley. This necessitated case review, block and slide selection by pathologist at [facility]. Breast Cancer Recurrence Score = 11 Results of the complete Oncotype testing ([employer] report) are viewable in EMR under: Reports - Pathology - Lab Pathology Report, Scanned.
--- NOTE | 2020-12-02 09:14 | PCM.HP.BLA ---
History and Physical Date of Admission: 12/02/20 Intake Visit Reasons: breast path/ discuss options Chief Complaint: discuss surgery Clinical Research Specialist Required: No Is patient in pain?: No Allergies Penicillins Allergy (Intermediate, Verified 11/14/20 10:34) Hives Medications B-complex with vitamin C 1 tab PO MOWEFR 01/10/18 [History Confirmed 11/14/20] antiarthritic combination no.2 900 mg tablet 900 mg PO QODAY 01/10/18 [History Confirmed 11/14/20] aspirin 81 mg tablet,delayed release 81 mg PO MOWEFR 01/10/18 [History Confirmed 11/14/20] biotin 5,000 mcg disintegrating tablet 10,000 mcg PO DAILY 01/10/18 [History Confirmed 11/14/20] calcium carbonate 600 mg (1,500 mg)-vitamin D3 200 unit tablet 1 tab PO MOWEFR 01/10/18 [History Confirmed 11/14/20] magnesium 250 mg tablet 250 mg PO DAILY 01/10/18 [History Confirmed 11/14/20] multivitamin 1 tab PO DAILY 01/10/18 [History Confirmed 11/14/20] Is last menstrual period known: No Post menopausal: Yes Patient : No PFSH Medical History (Updated 11/14/20 @ 11:[address] Darian Wyman MD) Arthritis Skin cancer Surgical History (Updated 11/09/20 @ 13:26 by Tarsha Brewer) History of basal cell carcinoma excision History of hysteroscopy History of Moh's micrographic surgery for skin cancer Family History (Updated 01/10/18 @ 14:13 by Judy Chapa) Father Cancer of parotid gland Hypertension Thyroid disorder Mother Hypertension Grandmother Angina at rest Aunt Lupus Brother Pancreatic cancer Grandmother Myocardial infarction Heart disease Mother Hypertension Sister Hypertension Skin cancer Social History (Updated 01/10/18 @ 14:[address] Luis Ochoa DO) Smoking Status: Never smoker alcohol intake: current alcohol intake frequency: a few times a week Alcohol type: wine substance use type: does not use what type of physical activity do you participate in: walking, yoga and other details: Rc, classes HPI HPI HPI: MISBAH JOHNSON, is a 65 F who presents to the office today for ongoing surgical discussion regarding abnormal right mammogram with previous office visit November 09, 2020 with an ultrasound-guided biopsy performed at that time.. Final pathology shows invasive ductal carcinoma. Nuclear grade 1-2 over 3. Estrogen receptor greater than 95%. Progesterone receptor greater than 95%. HER-2/ingrid 0. She had presented with a screening mammogram demonstrating what was felt to be approximately 1 cm diameter lesion lower inner right breast. During my ultrasound-guided needle core biopsy that I performed for her on November 09, 2020 I thought the lesion might be slightly more irregular. Intake Visit Reasons: BIRADS 4 RIGHT BREAST Chief Complaint: right breast biopsy Clinical Research Specialist Required: No Is patient in pain?: No Allergies Penicillins Allergy (Intermediate, Verified 11/09/20 13:27) Hives Medications B-complex with vitamin C 1 tab PO MOWEFR 01/10/18 [History Confirmed 03/13/18] antiarthritic combination no.2 900 mg tablet 900 mg PO QODAY 01/10/18 [History Confirmed 03/13/18] aspirin 81 mg tablet,delayed release 81 mg PO MOWEFR 01/10/18 [History Confirmed 03/13/18] biotin 5,000 mcg disintegrating tablet 10,000 mcg PO DAILY 01/10/18 [History Confirmed 03/13/18] calcium carbonate 600 mg (1,500 mg)-vitamin D3 200 unit tablet 1 tab PO MOWEFR 01/10/18 [History Confirmed 03/13/18] magnesium 250 mg tablet 250 mg PO DAILY 01/10/18 [History Confirmed 03/13/18] multivitamin 1 tab PO DAILY 01/10/18 [History Confirmed 03/13/18] Is last menstrual period known: No Post menopausal: Yes Patient : No PFSH Medical History (Updated 11/09/20 @ 13:26 by Tarsha Brewer) Arthritis Skin cancer Surgical History (Updated 11/09/20 @ 13:26 by Tarsha Brewer) History of basal cell carcinoma excision History of hysteroscopy History of Moh's micrographic surgery for skin cancer Family History (Updated 01/10/18 @ 14:13 by Judy Chapa) Father Cancer of parotid gland Hypertension Thyroid disorder Mother Hypertension Grandmother Angina at rest Aunt Lupus Brother Pancreatic cancer Grandmother Myocardial infarction Heart disease Mother Hypertension Sister Hypertension Skin cancer Social History (Updated 01/10/18 @ 14:[address] Luis Ochoa DO) Smoking Status: Never smoker alcohol intake: current alcohol intake frequency: a few times a week Alcohol type: wine substance use type: does not use what type of physical activity do you participate in: walking, yoga and other details: poppy Tatum HPI HPI HPI: MISBAH JOHNSON, is a 65 F who presents to the office today for surgical consultation regarding a abnormal right mammogram. The patient is referred by Dr. Aleja Almendarez a written copy my surgical consult recommendations were returned to her. 65-year-old female. A0. Menarche was at age 14-1/2. First child was born when she was 22. She did breast-feed. No history of previous breast biopsies. She had an area that was of interest 12 years ago but could not be found and so was not biopsied. She has not been on any estrogen replacement therapy. No history of breast trauma. No nipple discharge or bleeding. She presented for routine screening mammography on November 03, 2020 and then had right breast ultrasonography. As noted below there is a 1 x 0.9 x 1 cm irregular complex nodule lower inner right breast 4 o'clock position +2 cm BI-RADS Category 4. 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 November 03, 2020 MAMMOGRAPHY - BILATERAL SCREENING REASON FOR EXAM: Female, 65 years old. Routine annual screening examination. PERTINENT HISTORY: Non-contributory. TECHNIQUE: Digital bilateral breast max (3D mammographic acquisition) in the CC and MLO projections. 2-D mediolateral oblique (MLO) and craniocaudad (CC) views of both breasts were obtained. CAD: Full Field Digital Mammography with Computer Added Detection was performed. COMPARISON: Comparison is made with prior outside examination dated 12/05/2017. FINDINGS: Breast Composition: The breasts are heterogeneously dense, which may obscure small masses. There are now is evidence of an irregular 1 cm x 0.9 cm nodule in the slightly inferior anterior medial aspect of the right breast. Correlation with ultrasound is recommended for further evaluation. No other significant abnormalities are identified. BI/SCRN MAMM (CAD)W/MAX BILAT IMPRESSION: New 1 cm by 0.9 cm nodule in the slightly inferior anterior medial aspect of the right breast correlation with ultrasound is recommended. ASSESSMENT CATEGORY: BIRADS Category 0: Incomplete. Need additional imaging evaluation. A letter regarding these results will be sent to the patient by the facility within 30 days. Approximately 10% of breast cancers are not detected by mammography. A normal mammogram should not delay biopsy of a clinically suspicious abnormality. [id number] Electronically Signed: Mode Ford MD at 15:03 EDT , Service support , STUDY: ULTRASOUND BREAST - RIGHT REASON FOR EXAM: Female, 65 years old. Abnormal screening mammogram. TECHNIQUE: Axial and longitudinal images of the RIGHT breast were performed with a high resolution ultrasound transducer. # OF IMAGES: 16 COMPARISON: Comparison is made with prior mammogram dated 11/03/2020. FINDINGS: RIGHT Breast: The mammographic abnormality corresponds to a 1 cm x 0.9 cm x 1 cm irregular complex nodule with increased vascularity at the 4 o''clock position of the breast at 2 cm from the nipple. Biopsy is recommended. _ US/Breast Limited Unilateral IMPRESSION: 1 cm x 0.9 cm x 1 cm irregular complex nodule with increased vascularity at the 4 o''clock position of the breast at 2 cm from nipple. Biopsy is recommended. ASSESSMENT CATEGORY: BIRADS Category 4: Suspicious - Biopsy Should Be Considered. A letter regarding these results will be sent to the patient by the facility within 30 days. ROS General General: No weight change, appetite, fatigue, colon cancer, breast cancer or weakness HEENT HEENT: No difficulty swallowing, eye injury, eye surgery, swollen glands or hoarseness Endo Endocrine: No thyroid disease, diabetes mellitus, thyroid cancer, Hair loss, heat intolerance or cold intolerance Musc Musculoskeletal: Yes arthritis; No back problems, rheumatoid arthritis, gout or joint pain Cardio Cardiovascular: No murmur, pacemaker, heart disease, atrial fibrillation, high blood pressure, heart attack, heart stent, palpitations, shortness of breat with exertion or chest pain Psych Psychiatric: No depression, anxiety or hearing voices Resp Respiratory: No shortness of breath, No sleep apnea, No cough, No COPD, No asthma, No emphysema and No wheezing Gastro Gastrointestinal: No abdominal pain, No nausea or vomiting, No diarrhea, No constipation, No blood in stool, No acid reflux, No hemorrhoids, No ulcers, No gallbladder problem and No black,tarry stools Ray Hematologic: No blood thinners, No blood disorders, No bleeding, No anemia and No blood clots Neuro Neurologic: No weakness Exam Const General: cooperative, healthy appearing, comfortable, no acute distress and well developed Nutritional Appearance: average body habitus Orientation: alert and awake [facility] Head: normal to inspection Eyes General: appearance normal, both eyes and all related structures Chest Other: Right breast: Nondescript fibrous area lower inner right breast. No distortion. No tenderness. No nipple discharge. No axillary or clavicular adenopathy Left breast: No focal mass. No nipple discharge. No distortion. No axillary or clavicular adenopathy Resp Effort & Inspection: normal respiratory effort Auscultation: clear to auscultation bilaterally Cardio Rate: regular rate Rhythm: regular rhythm GI Palpation: soft and no hepatosplenomegaly Auscultation: normal bowel sounds Musc Cervical Spine: normal cervical lordosis Skin General: no rashes or lesions noted Neuro General: patient alert and patient awake Extrem General: no calf tenderness bilaterally Psych Affect: normal affect Office Procedures Biopsy Provider Documentation Ultrasound-guided needle core biopsy lower inner right breast Timeout and informed consent was obtained. The patient was taken the procedure room placed upon the table. The right breast was sterilely prepped draped in routine fashion with Betadine. Under ultrasound guidance 1% lidocaine mixed 50-50 with 0.5% Marcaine was used as a local anesthetic. Throughout the procedure a total of 8 cc was used. A small stab incision was created. A 14-gauge Monopty needle was advanced to prefire depth. Pre and post fire films were obtained. 5 different cores were obtained. A marking clip was left in position. Pressure was held for hemostasis. Steri-Strip Telfa OpSite dressing applied. She was given activity wound care instructions. The specimens were immediately transferred to formalin. Specimens core biopsies. Drains none. Blood loss minimal. Darian Wyman M.D., F.A.C.S. Biopsy Breast Biopsy: [id number] US Guidance Procedure Time Out Time Out Informed consent given: Yes Consent signed: Yes Time out checklist: patient, procedure, site marked/identified, positioning of patient, supplies available, allergies confirmed and team agrees on procedure Time out staff in room: Yes Time out verified: Yes Time out date: 11/09/20 Time out time: 13:45 Assessment and Plan Assessment and Plan (1) Abnormal ultrasound of breast: Status: Acute Plan - Dr. Darian Wyman MD: The patient and her have had an opportunity to ask and have questions answered. She will return to the office early next week to review pathology results and ongoing treatment options. She tolerated the procedure well without apparent complication. Final pathology is pending. Copy: Dr. Aleja Wyman M.D., F.A.C.S. ROS General General: No weight change, appetite, fatigue, colon cancer, breast cancer or weakness HEENT HEENT: No difficulty swallowing, eye injury, eye surgery, swollen glands or hoarseness Endo Endocrine: No thyroid disease, diabetes mellitus, thyroid cancer, Hair loss, heat intolerance or cold intolerance Musc Musculoskeletal: Yes arthritis; No back problems, rheumatoid arthritis, gout or joint pain Cardio Cardiovascular: No murmur, pacemaker, heart disease, atrial fibrillation, high blood pressure, heart attack, heart stent, palpitations, shortness of breat with exertion or chest pain Psych Psychiatric: No depression, anxiety or hearing voices Resp Respiratory: No shortness of breath, No sleep apnea, No cough, No COPD, No asthma, No emphysema and No wheezing Gastro Gastrointestinal: No abdominal pain, No nausea or vomiting, No diarrhea, No constipation, No blood in stool, No acid reflux, No hemorrhoids, No ulcers, No gallbladder problem and No black,tarry stools Ray Hematologic: No blood thinners, No blood disorders, No bleeding, No anemia and No blood clots Neuro Neurologic: No weakness Exam Chest Other: Right breast: Nicely healed stab incision with minimal ecchymosis lower mid to lower inner right breast COVID (Procedure Consent) Procedure Criteria Procedure Criteria: Yes Elective The surgeon/proceduralist and patient have discussed in detail the risk of exposure to and/or potential harm posed by the COVID-19 virus with having a surgery/procedure at this time versus the risk of delaying the surgery/procedure. It is not possible to know either the risk of delaying the surgery or procedure or chance of getting an infection with perfect accuracy, but a joint decision was made between the patient and the surgeon/proceduralist to proceed at this time with the scheduled surgery/procedure as indicated on the consent form. Assessment and Plan Assessment and Plan (1) Breast cancer: Status: Acute Qualifiers: Breast location: lower inner quadrant of breast Estrogen receptor status: positive Laterality: right Patient sex: female Qualified Code(s): C50.311 - Malignant neoplasm of lower-inner quadrant of right female breast; Z17.0 - Estrogen receptor positive status [ER+] Plan - Dr. Darian Wyman MD: I discussion with the patient and her Al. Based upon a slight irregularity of the lesion and the findings suggesting to be a larger lesion I propose for her a bilateral breast MRI. I believe that this will further assist with preoperative planning. At this point I recommend a stereotactic wire localization lower inner right breast with nuclear tracer and blue dye right axillary sentinel lymph node biopsy and wire localized lumpectomy. I have discussed technique, benefit, risk, alternatives. She has had an opportunity to ask and have questions answered. She does specifically request Dr. Martinez Huntley for oncology as he was involved with a family member. I propose at this time hematology oncology consultation and breast MRI preoperatively. We will tentatively schedule an operative date. Based upon the consultation and additional imaging I did have an opportunity discussed the patient's care with Dr. Huntley. He concurs on recommendations with pursuing the breast MRI. He will see the patient as soon as his return for being out of town. Tentatively we will be scheduling the patient for a stereotactic wire localization lower inner right breast with nuclear tracer and blue dye right axillary sentinel lymph node biopsy and wire localized right breast lumpectomy. She is aware of technique, benefit, risk, alternatives. If MRI demonstrates a variance and our expectations then I will prefer pursue additional investigations preoperatively. I appreciate the opportunity of assisting with her surgical care Copy: Dr. Aleja Almendarez and Dr. aMrtinez Wyman M.D., F.A.C.S. Plan Details Other Orders: Orders: Breast Bilateral W/O and W Today C50.911 Coding Level of Care Code Off vis,est,level 2 Diagnoses Breast cancer C50.311; Z17.0 Breast location: lower inner quadrant of breast Estrogen receptor status: positive Laterality: right Patient sex: female I have re-examined the patient. There are no clinical changes since date of exam.
[2020-12-02] MEDS: Lactated Ringers 1,000 ML 100 ML IV (09:18)
--- NOTE | 2020-12-02 09:30 | NM_ITS ---
PROCEDURE: NUCLEAR MEDICINE Injection [place] Node - RIGHT breast(s). REASON FOR EXAM: Female, 65 years old. Right breast cancer. TECHNIQUE: [place] node localization using radionuclide methods of the RIGHT breast(s) was performed following subcutaneous administration of 1.1 mCi of of sulfur colloid Tc-99m. COMPARISON STUDIES : Comparison is made with prior sonogram dated 11/04/2020. FINDINGS: 1.1 mCi of technetium labeled sulfur colloid was injected subcutaneously at the biopsy site. NM/Lymph Node Injection Only IMPRESSION: 1.1 mCi of technetium labeled sulfur colloid was injected subcutaneously at the biopsy site. Electronically Signed: Mode Ford MD at 10:18 EDT , Service support ,
--- NOTE | 2020-12-02 10:30 | BI_ITS ---
SURGICAL BREAST SPECIMEN RADIOGRAPH CLINICAL: Document presence of tissue clip marker in biopsy specimen. FINDINGS: Specimen shows presence of tissue clip marker. Electronically Signed: Mode Ford MD at 12:58 EDT , Service support , BI/Breast Biopsy Specimen
--- NOTE | 2020-12-02 11:07 | PCM.OPRPT ---
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 65-year-old female was taken to the stereotactic and placed prone on the table. The right breast was placed in the medial lateral view. Stereotactic images were obtained. Digital information was obtained on the single target site. The breast was prepped with Betadine. 1% lidocaine was used as local anesthetic. 1 cc was used. A 20-gauge Kopan's needle was advanced to prefire depth +15 mm. On fast view demonstrated excellent localization. Sterile dressings were applied. She was subsequently taken the operating for definitive surgical resection. No apparent complication. The patient was taken to the operating placed upon the table and underwent timeout informed consent and then general anesthesia. The right arm was placed at right angles of the table and carefully padded with soft roll. The right breast was prepped with alcohol and 2 cc of isosulfan blue dye was injected. Massage was performed for 3 minutes. The right breast and axilla were sterilely prepped and draped. An oblique incision was made in the right axilla and sharp and blunt dissection was used to identify tracking blue dye and active radiotracer. Superficially there was a significant amount of isosoap and blue dye tracking however upon dissecting them focal sandeep channels deeper they did not seemingly go to any in the right nodes. I did dissect down dissected some fibrofatty tissue and submitted that for suspected sentinel lymph nodes. This ended up being negative. Further inspection by neoprobe and palpation and visualization did not reveal any additional lymphatic tracking deeper. There were lymph nodes identified with the neoprobe subfascially beneath axillary fascia. I was able to identify these dissect them free and submit a packet of lymph nodes although they had some tracer activity to it they had no blue dye. Remaining inspection by visualization palpation and neoprobe failed residual any significant residual disease. Surgicel was placed in the axillary area after hemostasis was achieved. A transverse incision was made in the inner aspect of the right breast circumferential sharp and electrocautery sections used to completely excise the lump identified by the wire. A long suture was placed laterally and a short suture superiorly and the wire exited anteriorly. 4 hemoclips were placed to sanjay the edges. The wound was closed with a deep layer of interrupted 3-0 Vicryl in a running septic or 4-0 Monocryl. The periincisional areas were both wounds were closed anesthetized with 0.5% Marcaine and a total of 30 cc was used. Axillary wound was inspected was hemostatic. That wound was closed the deep layer of interrupted 3-0 Vicryl and then a running septic of 4-0 Monocryl. Steri-Strips Telfa OpSite dressings applied followed by bulky dry dressings. Sponge and instrument and needle counts were reported to certainly be correct. Blood loss was minimal. She was taken to the recovery room in satisfactory addition without apparent complication Specimens right breast lump. Suspected right axillary sentinel nodes. Right axillary lymph nodes. Drains none. Blood loss minimal. Darian Wyman M.D., F.A.C.S.
--- NOTE | 2020-12-02 11:22 | PCM.DC ---
Discharge Instructions Diet Discharge Diet: No restrictions Activity Discharge Activity: May Not Drive (for 2-3 days or while taking narcotic pain meds.) May shower in (days): 1 Lifting Restrictions: 10 pounds for 1 week. Dressing / Incision Call your doctor if your incision/area has: Continuous Slow Oozing and Sudden Increased Bleeding Call your doctor if you observe: Fever of 101 or Higher Suture Line Care: Avoid Pulling/Pushing and Avoid Pinching/Bending Remove Dressing in: 1 day Additional Dressing/Incision Instructions:: Remove bulky dressing tomorrow. May leave any opsite dressing for 3-4 days. Keep dressing in place until your follow-up appointment. Follow Up Care Test Results: Test results from this visit will be discussed in further detail at your follow-up appointment, if applicable. Discharge Plan Admission Attending Provider: Darian Wyman Primary Care Provider: Aleja Almendarez Discharge Orders/Prescriptions Prescriptions: New hydrocodone-acetaminophen 5-325 mg tablet 1 tab PO Q6H PRN (Reason: pain) 2 Days Qty: 5 RF: 0 Continued multivitamin tablet 1 tab PO QODAY RF: 0 antiarthritic combination no.2 [glucosamine-chondroitin] 900 mg tablet 900 mg PO QODAY RF: 0 calcium carbonate-vitamin D3 [Calcium 600 + D(3)] 600 mg(1,500mg) -200 unit tablet 1 tab PO DAILY RF: 0 magnesium 250 mg tablet 250 mg PO QODAY RF: 0 biotin 5,000 mcg tablet,disintegrating 10,000 mcg PO QODAY RF: 0 B-complex with vitamin C [Super B Complex-Vitamin C] tablet 1 tab PO QODAY RF: 0 Elderberry - Vitamin C- Zinc 1 piece of gum PO/SL DAILY RF: 0
[2020-12-02] MEDS: Isosulfan Blue 1% 5 ML Vial (11:25)
[2020-12-02] MEDS: Bupivacaine Mpf 0.5% 30 ML VIAL (11:55)
[2020-12-02] MEDS: Acetaminophen 325 MG Tablet 650 MG PO (15:01)
== END 2020-12-02 15:28 | disposition home or self-care (01) ==
LOC: SDC 08:38 → AC 08:38
PROVIDERS: PCP Internal Medicine; Referring Provider Surgery; Visit Provider Surgery
PROC: (CPT 19301; principal; 2020-12-02 11:15)
DX: C50.311 Malignant neoplasm of lower-inner quadrant of right female breast (principal); Z17.0 Estrogen receptor positive status [ER+]; R59.0 Localized enlarged lymph nodes; M19.90 Unspecified osteoarthritis, unspecified site; Z78.0 Asymptomatic menopausal state; Z85.828 Personal history of other malignant neoplasm of skin; Z79.82 Long term (current) use of aspirin; Z79.899 Other long term (current) drug therapy
CPT/HCPCS: 19301; 38525; 00400; 19283; 19281; 38792; 71046; 76098; 88305; 88307; 88331; 88332; 88341; 88342; 93005; A9541; J7120; J2405; Q9968

== ENCOUNTER 2021-08-31 09:21 | Outpatient (CLI) | payer MEDICARE, SELFPAY ==
--- NOTE | 2021-08-31 09:36 | BI_ITS ---
MAMMOGRAPHY - BILATERAL DIAGNOSTIC REASON FOR EXAM: Female, 66 years old. 6 month follow-up following right lumpectomy and radiation treatment. PERTINENT HISTORY: Personal history of breast cancer. TECHNIQUE: Digital bilateral breast araseli (3D mammographic acquisition) in the CC and MLO projections. 2-D mediolateral oblique (MLO) and craniocaudad (CC) views of both breasts were obtained. CAD: Full Field Digital Mammography with Computer Added Detection was performed. COMPARISON: Comparison is made with prior study dated 11/03/2020. FINDINGS: Breast Composition: The breasts are heterogeneously dense, which may obscure small masses. There are no dominant masses or suspicious calcifications. The patient is status post lumpectomy of the nodular density in the deep inferior medial aspect of the right breast as well as surgical clips seen in the right axillary region. No other significant abnormalities are identified. BI/DIAG MAMM W/CAD, BILAT IMPRESSION: Status post right lumpectomy and right axillary resection. One year follow-up recommended. (A) ASSESSMENT CATEGORY: BIRADS Category 2: Benign. A letter regarding these results will be sent to the patient by the facility within 30 days. Approximately 10% of breast cancers are not detected by mammography. A normal mammogram should not delay biopsy of a clinically suspicious abnormality. Electronically Signed: Mode Ford MD at 11:35 EDT ,
== END 2021-08-31 23:59 | disposition home or self-care (01) ==
PROVIDERS: PCP Internal Medicine; Visit Provider Surgery
DX: Z85.3 Personal history of malignant neoplasm of breast (principal)
CPT/HCPCS: 77062; 77066; G0279

== ENCOUNTER 2021-09-07 13:41 | Outpatient (CLI) | payer MEDICARE, SELFPAY ==
[2021-09-07 13:46] VITALS: BP 125/52; PULSE 55; RESP 16; TEMP 36; O2SAT 100; BMI 25.4
[2021-09-07] MEDS: Zoledronic Acid 5 MG 100 ML 300 MG IV (14:03)
[2021-09-07] MEDS: 0.9% NaCl Peripheral Flush Adult/Peds IV (14:03)
[2021-09-07 14:29] VITALS: BP 107/53; PULSE 53
== END 2021-09-07 23:59 | disposition home or self-care (01) ==
LOC: MEDOUTP 13:42
PROVIDERS: PCP Internal Medicine; Referring Provider Internal Medicine Endocrinology, Diabetes & Metabolism; Visit Provider Internal Medicine Endocrinology, Diabetes & Metabolism
DX: M81.0 Age-related osteoporosis without current pathological fracture (principal)
CPT/HCPCS: 96365; A4216; J3489

== ENCOUNTER → 2022-09-06 | Outpatient (CLI) | payer MEDICARE, SELFPAY ==
--- NOTE | 2022-09-06 14:46 | BI_ITS ---
MAMMOGRAPHY - BILATERAL SCREENING REASON FOR EXAM: Female, 67 years old. Routine annual screening examination. PERTINENT HISTORY: Personal history of breast cancer. Prior lumpectomies with the radiation therapy. TECHNIQUE: Digital bilateral breast max (3D mammographic acquisition) in the CC and MLO projections. 2-D mediolateral oblique (MLO) and craniocaudad (CC) views of both breasts were obtained. CAD: Full Field Digital Mammography with Computer Added Detection was performed. COMPARISON: Comparison is made with prior study dated August 31, 2021 and November 03, 2020. FINDINGS: Breast Composition: The breasts are heterogeneously dense, which may obscure small masses. There are no dominant masses or suspicious calcifications. The patient is status post lumpectomy of the nodular density in the deep inferior medial aspect of the right breast. Surgical clips are seen in the right axillary region. No other significant abnormalities are identified. There has been no significant change since the prior study. BI/SCRN MAMM (CAD)W/MAX BILAT IMPRESSION: Stable bilateral screening mammogram. Yearly follow-up mammogram recommended. (A) ASSESSMENT CATEGORY: BIRADS Category 2: Benign. A letter regarding these results will be sent to the patient by the facility within 30 days. Approximately 10% of breast cancers are not detected by mammography. A normal mammogram should not delay biopsy of a clinically suspicious abnormality. [id number] Electronically Signed: Mode Ford MD at 8:24 EDT ,
--- NOTE | 2022-09-06 14:47 | US_ITS ---
INDICATION: PAIN EXAMINATION: US Transvaginal Non-OB TECHNIQUE: Transvaginal (for optimal evaluation of the adnexa) pelvic ultrasound was performed. Grayscale, spectral waveform, and color flow Doppler evaluation of the adnexa. COMPARISON: None. FINDINGS: UTERUS: Anteverted. The uterus measures 5.6 x 4.3 x 3.1 cm. There is a 1.2 cm calcified fibroid in the posterior body. The endometrial stripe measures 1.7 mm in AP diameter which is within normal limits. RIGHT OVARY: Not visualized. LEFT OVARY: Measures 1.6 x 1.3 x 1 cm. Non-enlarged, normal echogenicity. There is normal arterial inflow and venous outflow present in the left ovary. FREE FLUID: None. US/Transvaginal Non- IMPRESSION: 1.2 cm calcified fibroid in the posterior uterine body. Electronically Signed: Elliot Veliz MD at 18:20 EDT ,
== END | disposition home or self-care (01) ==
LOC: OPBI 14:42
PROVIDERS: PCP Internal Medicine; Referring Provider Internal Medicine; Visit Provider Internal Medicine
DX: Z12.31 Encounter for screening mammogram for malignant neoplasm of breast (principal); C50.311 Malignant neoplasm of lower-inner quadrant of right female breast; Z17.0 Estrogen receptor positive status [ER+]
CPT/HCPCS: 76830; 77063; 77067

== ENCOUNTER 2022-09-26 10:52 | Outpatient (CLI) | payer MEDICARE, SELFPAY ==
[2022-09-26 11:06] VITALS: BP 117/52; PULSE 49; RESP 16; O2SAT 100; BMI 25.7
[2022-09-26] MEDS: 0.9% NaCl Peripheral Flush Adult/Peds IV (11:15)
[2022-09-26] MEDS: Zoledronic Acid 5 MG 100 ML 300 MG IV (11:15)
[2022-09-26 11:40] VITALS: BP 120/54; PULSE 52
== END 2022-09-26 10:53 | disposition home or self-care (01) ==
LOC: MEDOUTP 10:53
PROVIDERS: PCP Internal Medicine; Referring Provider Internal Medicine Endocrinology, Diabetes & Metabolism; Visit Provider Internal Medicine Endocrinology, Diabetes & Metabolism
DX: M81.0 Age-related osteoporosis without current pathological fracture (principal)
CPT/HCPCS: 96365; A4216; J3489

== ENCOUNTER → 2023-05-14 | Outpatient (CLI) | payer MEDICARE, SELFPAY ==
--- NOTE | 2023-05-14 08:30 | BD_ITS ---
STUDY: DUAL ENERGY X-RAY ABSORPTIOMETRY / DXA REASON FOR EXAM: Female, 67 years old. 733.00OsteoporosisBONE DENSITY REASON FOR EXAM TECHNIQUE: Bone Mineral Density (BMD) measurements of lumbar spine and bilateral hips were obtained. COMPARISON: Comparison is made with prior study dated 07/06/2020. FINDINGS: Lumbar Spine (L1-L4): g/cm2 (0.830) / T-score (-2.0) / Z-score (0.0) Findings are suggestive of osteopenia with a moderate fracture risk. Left Femur Total: g/cm2 (0.779) / T-score (-1.3) / Z-score (0.1) Left Femoral Neck: g/cm2 (0.633) / T-score (-1.9) / Z-score (-0.3) Right Femur Total: g/cm2 (0.753) / T-score (-1.5) / Z-score (-0.1) Right Femoral Neck: g/cm2 (0.605) / T-score (-2.2) / Z-score (-0.5) The T-Scores on the most recent prior examination were: Lumbar Spine (L1-L4): There has been worsening of bone density since the previous examination. Left Femur Total: which represents an improvement of 9.6%. Right Femur Total: which represents an improvement of 14.1%. BD/Dexa Bone Density Study IMPRESSION: The patient is considered osteopenic as outlined below according to World Lon Organization (WHO) criteria with a high fracture risk. There has been improvement of bone density since the previous examination. Reference Information: The T-score is the number of standard deviations above or below the standard which is normal for young adults at their peak bone mineral density. The World Health Organization (WHO) interprets the T-scores as follows: Above -1 Normal bone density Between -1 and -2.5 Osteopenia Equal to / or below -2.5 Osteoporosis As a practical clinical guideline, osteopenia may be graded as follows: Mild -1 through -1.5 Moderate -1.6 through -2.0 Severe -2.1 through -2.4 The Z-score is the number of standard deviations above or below age-matched controls. A Z-score of less than -1.5 would be considered abnormal. References: 1. NIH Osteoporosis and Related Bone Diseases www osteo.org 2. International Society for Clinical Densitometry www iscd.org 3. National Osteoporosis Foundation www nof.org Electronically Signed: Mode Ford MD at 15:39 EST ,
== END | disposition home or self-care (01) ==
LOC: OPBD 08:27
PROVIDERS: PCP Internal Medicine; Referring Provider Internal Medicine; Visit Provider Internal Medicine
DX: M81.0 Age-related osteoporosis without current pathological fracture (principal)
CPT/HCPCS: 77080

== ENCOUNTER → 2023-09-11 | Outpatient (CLI) | payer MEDICARE, SELFPAY ==
--- NOTE | 2023-09-11 14:47 | BI_ITS ---
MAMMOGRAPHY - BILATERAL SCREENING REASON FOR EXAM: Female, 68 years old. Routine annual screening examination. PERTINENT HISTORY: Personal history of breast cancer. Prior right lumpectomy with radiation therapy. TECHNIQUE: Digital bilateral breast max (3D mammographic acquisition) in the CC and MLO projections. 2-D mediolateral oblique (MLO) and craniocaudad (CC) views of both breasts were obtained. CAD: Full Field Digital Mammography with Computer Added Detection was performed. COMPARISON: Comparison is made with prior examination dated September 06, 2022 and August 31, 2021. FINDINGS: Breast Composition: The breasts are heterogeneously dense, which may obscure small masses. There are no dominant masses or suspicious calcifications. Once again, the patient is status post lumpectomy in the deep inferior medial aspect of the right breast. Surgical clips are seen in the right axilla. No other significant abnormalities are identified. There has been no significant change since the prior study. BI/SCRN MAMM (CAD)W/MAX BILAT IMPRESSION: Stable bilateral screening mammogram. Yearly follow-up mammogram recommended. (A) ASSESSMENT CATEGORY: BIRADS Category 2: Benign. A letter regarding these results will be sent to the patient by the facility within 30 days. Approximately 10% of breast cancers are not detected by mammography. A normal mammogram should not delay biopsy of a clinically suspicious abnormality. [id number] Electronically Signed: Mode Ford MD at 15:36 EDT ,
== END | disposition home or self-care (01) ==
LOC: OPBI 14:45
PROVIDERS: PCP Internal Medicine; Referring Provider Nurse Practitioner; Visit Provider Nurse Practitioner
DX: Z12.31 Encounter for screening mammogram for malignant neoplasm of breast (principal); Z85.3 Personal history of malignant neoplasm of breast
CPT/HCPCS: 77063; 77067

== ENCOUNTER 2023-10-02 12:41 | Outpatient (CLI) | payer MEDICARE, SELFPAY ==
[2023-10-02 12:51] VITALS: BP 112/40; PULSE 54; RESP 16; TEMP 35.9; O2SAT 100; BMI 21.4
[2023-10-02] MEDS: 0.9% NaCl Peripheral Flush Adult/Peds IV (13:03)
[2023-10-02] MEDS: Zoledronic Acid 5 MG 100 ML 300 MG IV (13:06)
[2023-10-02 13:36] VITALS: BP 104/58; PULSE 54; RESP 16; TEMP 36; O2SAT 100
== END 2023-10-02 23:59 | disposition home or self-care (01) ==
LOC: MEDOUTP 12:42
PROVIDERS: PCP Internal Medicine; Referring Provider Internal Medicine Endocrinology, Diabetes & Metabolism; Visit Provider Internal Medicine Endocrinology, Diabetes & Metabolism
DX: M81.0 Age-related osteoporosis without current pathological fracture (principal)
CPT/HCPCS: 96365; A4216; J3489

== ENCOUNTER 2024-10-01 14:15 | Outpatient (CLI) | payer MEDICARE, SELFPAY ==
[2024-10-01 14:23] VITALS: BP 117/58; PULSE 55; RESP 16; TEMP 36.2; O2SAT 100
[2024-10-01] MEDS: 0.9% NaCl Peripheral Flush Adult IV (14:27)
[2024-10-01] MEDS: 0.9% NaCl IVPB Med Flush (100mL) 15 ML IV (14:32)
[2024-10-01] MEDS: Zoledronic Acid 5 MG 100 ML 300 MG IV (14:32)
[2024-10-01 15:04] VITALS: BP 95/54; PULSE 44; RESP 16; TEMP 36.6; O2SAT 99
== END 2024-10-01 23:59 | disposition home or self-care (01) ==
PROVIDERS: PCP Internal Medicine; Referring Provider Internal Medicine Endocrinology, Diabetes & Metabolism; Visit Provider Internal Medicine Endocrinology, Diabetes & Metabolism
DX: M81.0 Age-related osteoporosis without current pathological fracture (principal)
CPT/HCPCS: 96365; A4216; J3489

== ENCOUNTER → 2025-04-14 | Outpatient (CLI) | payer MEDICARE, SELFPAY ==
[2025-04-14 13:25] LABS: Cholesterol 258 mg/dL (<=200); Low Density Lipoprotein Calc. 147 mg/dL; Triglycerides 72 mg/dL; Very Low Density Lipoprotein 14 mg/dL (5-40); cholesterol:hdl ratio screen 2.59
== END | disposition home or self-care (01) ==
LOC: LAB.FUTURE 07:43 → CIMLAB 07:52
PROVIDERS: PCP Internal Medicine; Referring Provider Internal Medicine; Visit Provider Internal Medicine
DX: E78.00 Pure hypercholesterolemia, unspecified (principal)
CPT/HCPCS: 36415; 80061